=== PATIENT | female | born 1970 | race Native Hawaiian/Other Pacific Islander ===

== ENCOUNTER 2018-03-16 17:57 | Emergency (ER) | payer SELFPAY ==
--- NOTE | 2018-03-16 19:17 | ED PDOC ---
Arrival/HPI <BarneyMichael - Last Filed: 03/16/18 23:18> - General Historian: Patient - History of Present Illness Narrative History of Present Illness (Text): 03/16/18 19:14 48yo female with pmhx of hypertension who present with complaint of LUQ pain. States pain started on her epigastric area 2weeks ago with associated nausea and vomiting. She saw her PMD twice and was given Protonix. states the pain resolved and started again yesterday, but on her LUQ this time. States pain is intermittent and radiates to her left pelvic area. Notes that pain is usually worse when laying down. she denies nausea, vomiting, diarrhea, constipation, fever, chills, urinary symptoms, sick contact, hematuria, any other complaint. <Kam Irene A - Last Filed: 03/17/18 01:03> - General Time Seen by Provider: 03/16/18 19:13 Past Medical History - Provider Review Nursing Documentation Reviewed: Yes - Cardiac Hx Hypertension: Yes - Musculoskeletal/Rheumatological Hx Musculoskeletal Disorders: Yes (Left shoulder pain for many years) - Psychiatric Hx Substance Use: No - Suicidal Assessment Feels Threatened In Home Enviroment: No <Kam Irene A - Last Filed: 03/17/18 01:03> Family/Social History - Physician Review Nursing Documentation Reviewed: Yes Family/Social History: Unknown Family HX Smoking Status: Never Smoked Hx Alcohol Use: No Hx Substance Use: No Hx Substance Use Treatment: No <aKm Irene A - Last Filed: 03/17/18 01:03> Allergies/Home Meds <Michael Corley - Last Filed: 03/16/18 23:18> <Kam Irene A - Last Filed: 03/17/18 01:03> Allergies/Adverse Reactions: Allergies No Known Allergies Allergy (Verified 04/21/12 18:48) Home Medications: Home Meds Medication Instructions Recorded Confirmed Hydrochlorothiazide/Losartan 1 tab PO DAILY 04/22/12 03/16/18 [Losartan Potassium-Hydrochlorothiazide 12.5 M] Pantoprazole Sodium [Protonix] 40 mg PO DAILY 03/16/18 03/16/18 Review of Systems - Physician Review All systems were reviewed & negative as marked: Yes - Review of Systems Constitutional: Normal Eyes: Normal ENT: Normal Respiratory: Normal Cardiovascular: Normal Gastrointestinal: Abdominal Pain. absent: Constipation, Diarrhea, Nausea, Vomiting, Hematochezia, Hematemesis Genitourinary Female: Normal Musculoskeletal: Normal Skin: Normal Neurological: Normal Endocrine: Normal Hemo/Lymphatic: Normal Psychiatric: Normal <Kam Irene A - Last Filed: 03/17/18 01:03> Physical Exam Vital Signs Temp Pulse Resp BP Pulse Ox 03/16/18 22:54 97.9 F 78 20 134/78 98 03/16/18 17:58 98.9 F 75 18 148/85 99 <BarneyMichael - Last Filed: 03/16/18 23:18> Vital Signs Reviewed: Yes Temperature: Afebrile Blood Pressure: Normal Pulse: Regular Respiratory Rate: Normal Appearance: Positive for: Well-Appearing, Non-Toxic, Comfortable Pain Distress: None Mental Status: Positive for: Alert and Oriented X 3 - Systems Exam Head: Present: Atraumatic, Normocephalic Pupils: Present: PERRL Extroacular Muscles: Present: EOMI Conjunctiva: Present: Normal Mouth: Present: Moist Mucous Membranes Neck: Present: Normal Range of Motion Respiratory/Chest: Present: Clear to Auscultation, Good Air Exchange. No: Respiratory Distress, Accessory Muscle Use Cardiovascular: Present: Regular Rate and Rhythm, Normal S1, S2. No: Murmurs Abdomen: Present: Tenderness (Mild tenderness on deep palpation of LUQ), Other (Soft). No: Distention, Peritoneal Signs, Rebound, Guarding, McBurney's Point Tender, Rovsing's Sign Present Back: Present: Normal Inspection Upper Extremity: Present: Normal Inspection. No: Cyanosis, Edema Lower Extremity: Present: Normal Inspection. No: Edema Neurological: Present: GCS=15, CN II-XII Intact, Speech Normal Skin: Present: Warm, Dry, Normal Color. No: Rashes Psychiatric: Present: Alert, Oriented x 3, Normal Insight, Normal Concentration <Maria VictoriaKam A - Last Filed: 03/17/18 01:03> Medical Decision Making - Lab Interpretations Lab Results: 03/16/18 20:05 03/16/18 20:05 Lab Results 03/16/18 20:05: Sodium 138, Chloride 100, Potassium 3.1 L, Carbon Dioxide 28, Anion Gap 13, BUN 14, Creatinine 0.9, Est GFR ( Amer) > 60, Est GFR (Non- Af Amer) > 60, Random Glucose 96, Calcium 9.7, Magnesium 1.9, Total Bilirubin 0.6, AST 39 H, ALT 27, Alkaline Phosphatase 69, Total Protein 7.6, Albumin 4.3, Globulin 3.2, Albumin/Globulin Ratio 1.3, Lipase 74 03/16/18 20:05: pO2 31, VBG pH 7.37, VBG pCO2 53.0, VBG HCO3 30.6 H, VBG Total CO2 32.2 H, VBG O2 Sat (Calc) 65.5 H, VBG Base Excess 4.0 H, VBG Potassium 3.3 L , Sodium 138.0, Chloride 102.0, Glucose 90, Lactate 1.4, FiO2 21.0, Venous Blood Potassium 3.3 L 03/16/18 20:05: Urine Color Light yellow, Urine Appearance Clear, Urine pH 7.0, Ur Specific [place] <= 1.005, Urine Protein Negative, Urine Glucose (UA) Negative, Urine Ketones 15 H, Urine Blood Negative, Urine Nitrate Negative, Urine Bilirubin Negative, Urine Urobilinogen 0.2, Ur Leukocyte Esterase Trace H, Urine RBC 0 - 2, Urine WBC 2 - 5, Ur Epithelial Cells 3 - 4, Urine Bacteria Few 03/16/18 20:05: PT 12.1, INR 1.06, APTT 30.5 03/16/18 20:05: WBC 6.0, RBC 4.42, Hgb 13.6, Hct 39.1, MCV 88.5, MCH 30.8, MCHC 34.8, RDW 13.1, Plt Count 210, MPV 12.0 H, Gran % 60.7, Lymph % (Auto) 32.1, [place] % (Auto) 5.2, Eos % (Auto) 1.7, Baso % (Auto) 0.3, Gran # 3.65, Lymph # (Auto) 1.9, [place] # (Auto) 0.3, Eos # (Auto) 0.1, Baso # (Auto) 0.02 - RAD Interpretation Radiology Orders: 03/16/18 19:18 ABD & PELVIS W/O PO OR IV CONT [CT] Stat - Medication Orders Current Medication Orders: Discontinued Medications Famotidine (Pepcid) 20 mg IVP STAT STA Stop: 03/16/18 19:19 Last Admin: 03/16/18 20:22 Dose: 20 mg IVP Administration Document 03/16/18 20:22 [facility] (Rec: 03/16/18 20:22 [id number] Charges for Administration # of IVP Administrations 1 Sodium Chloride (Sodium Chloride 0.9%) 1,000 mls @ 1,000 mls/hr IV .Q1H STA Stop: 03/16/18 20:17 Last Admin: 03/16/18 20:22 Dose: 1,000 mls/hr eMAR Start Stop Document 03/16/18 20:22 [facility] (Rec: 03/16/18 20:22 [id number] Intravenous Solution Start Date 03/16/18 Start Time 20:22 Potassium Chloride (K-Dur 20 Meq Er Tab) 40 meq PO STAT STA Stop: 03/16/18 21:39 Last Admin: 03/16/18 23:04 Dose: 40 meq <Michael Corley - Last Filed: 03/16/18 23:18> ED Course and Treatment: 03/16/18 23:23 Impression: 1. Mild constipation. No obstructive or inflammatory bowel changes.2. No evidence of hydronephrosis or nephrolithiasis. 3. The gallbladder appears grossly unremarkable. 4. Simple cyst in the right lobe of the liver. 03/17/18 00:49 PT presented for stated history. Lab was unremarkable with exception of hypokalemia tjhat was repleted Abdominal/ Pelvic CT as noted above. Pt's pain likley gastristis. Result was DW the pt. She was referred to her PMD/GI <Kam Irene - Last Filed: 03/17/18 01:03> - PA / SALES SUPERINTENDENT / Resident Statement /DO has reviewed & agrees with the documentation as recorded. <Michael Corley - Last Filed: 03/16/18 23:18> Disposition/Present on Arrival <Michael Corley - Last Filed: 03/16/18 23:18> - Present on Arrival Any Indicators Present on Arrival: No History of DVT/PE: No History of Uncontrolled Diabetes: No Urinary Catheter: No History Surgical Site Infection Following: None - Disposition Have Diagnosis and Disposition been Completed?: Yes Disposition Time: 23:25 Patient Plan: Discharge <Kam Irene - Last Filed: 03/17/18 01:03> - Disposition Diagnosis: Abdominal pain Disposition: HOME/ ROUTINE Condition: STABLE Discharge Instructions (ExitCare): Acute Abdomen (Belly Pain), Adult (DC) Additional Instructions: Follow up with your Doctor Return to ED for any new or worsening symptoms Referrals: Charly MCCARTY,Gustabo Dunlap MD [Family Provider] - Follow up with primary Forms: [employer] (Faroese)
[2018-03-16] MEDS ORDERED: Sodium Chloride 0.9% 1,000 ML IV STA (19:18)
[2018-03-16 19:19] VITALS: BMI 26.6
[2018-03-16 20:37] LABS: BASO # 0.02 K/mm3 (0.0-2.0); BASO % 0.3 % (0.0-3.0); EOS # 0.1 (0.0-0.7); EOS % 1.7 % (1.5-5.0); GRAN # 3.65 (1.4-6.5); GRAN % 60.7 % (50.0-68.0); HEMOGLOBIN 13.6 g/dL (12.0-16.0); LYMPH # 1.9 (1.2-3.4); LYMPH % 32.1 % (22.0-35.0); MEAN CELL VOLUME 88.5 fl (80.0-105.0); MEAN CORPUSCULAR HEMOGLOBIN 30.8 pg (25.0-35.0); MEAN CORPUSCULAR HGB CONC 34.8 g/dl (31.0-37.0); MONO # 0.3 (0.1-0.6); MONO % 5.2 % (1.0-6.0); RBC 4.42 10^6/uL (3.5-6.1); RED CELL DISTRIBUTION WIDTH 13.1 % (11.5-14.5); URINE BILIRUBIN NEGATIVE (NEGATIVE); URINE BLOOD NEGATIVE (NEGATIVE); URINE GLUCOSE (UA) NEGATIVE (NEGATIVE); URINE LEUKOCYTE ESTERASE TRACE Leu/uL (NEGATIVE); URINE PROTEIN NEGATIVE mg/dL (<30 mg/dL); URINE UROBILINOGEN 0.2 E.U./dL (<1 E.U./dL)
[2018-03-16 20:38] LABS: URINE APPEARANCE CLEAR (CLEAR)
[2018-03-16 20:39] LABS: URINE COLOR LIGHT YELLOW (YELLOW)
[2018-03-16 20:41] LABS: INR 1.06; PARTIAL THROMBOPLASTIN TIME 30.5 Seconds (25.1-36.5); PROTHROMBIN TIME 12.1 SECONDS (9.4-12.5)
[2018-03-16 20:43] LABS: URINE BACTERIA FEW (NEG); URINE RBC 0 - 2 /hpf (0-2)
[2018-03-16 21:02] LABS: VENOUS BLOOD GAS PO2 31 mm/Hg (30-55); VENOUS BLOOD PH 7.37 (7.32-7.43)
[2018-03-16 21:20] LABS: BLOOD UREA NITROGEN 14 mg/dL (7-21); GFR NON-AFRICAN AMERICAN > 60
[2018-03-16 21:21] LABS: ALB/GLOB RATIO 1.3 (1.1-1.8); ALBUMIN 4.3 g/dL (3.0-4.8); ALT/SGPT 27 U/L (7-56); AST/SGOT 39 U/L (14-36); CALCIUM 9.7 mg/dL (8.4-10.5)
[2018-03-16 21:22] LABS: LIPASE 74 U/L (23-300)
[2018-03-16] MEDS ORDERED: Potassium Chloride 20 mEq ER Tab PO STA (21:38)
[2018-03-16 22:55] VITALS: PULSE 78; O2SAT 98
[2018-03-17 00:19] VITALS: BP 120/77; RESP 18; TEMP 98
--- NOTE | 2018-03-17 15:22 | CT ---
Date of service: 03/16/2018 PROCEDURE: CT Abdomen and Pelvis without intravenous contrast HISTORY: LUQ pain COMPARISON: None. TECHNIQUE: Without contrast.. Contrast dose: Radiation dose: Total exam DLP = 948 mGy-cm. This CT exam was performed using one or more of the following dose reduction techniques: Automated exposure control, adjustment of the mA and/or kV according to patient size, and/or use of iterative reconstruction technique. FINDINGS: LOWER THORAX: Unremarkable. LIVER: Unremarkable. No gross lesion or ductal dilatation. GALLBLADDER AND BILE DUCTS: Unremarkable. PANCREAS: Unremarkable. No gross lesion or ductal dilatation. SPLEEN: Unremarkable. ADRENALS: Unremarkable. No mass. KIDNEYS AND URETERS: Unremarkable. No hydronephrosis. No solid mass. VASCULATURE: Unremarkable. No aortic aneurysm. BOWEL: Unremarkable. No obstruction. No gross mural thickening. Mild constipation APPENDIX: Unremarkable. Normal appendix. PERITONEUM: Unremarkable. No free fluid. No free air. LYMPH NODES: Unremarkable. No enlarged lymph nodes. BLADDER: Unremarkable. REPRODUCTIVE: Unremarkable. BONES: No acute fracture. OTHER FINDINGS: The report concurs with the preliminary [facility] report IMPRESSION: No acute intra-abdominal findings.
== END 2018-03-17 00:17 | disposition home or self-care (01) ==
LOC: ED 17:57
DX: R10.12 Left upper quadrant pain (principal); I10 Essential (primary) hypertension
CPT/HCPCS: 74176; 80053; 81001; 82803; 83690; 83735; 85025; 85610; 85730; 87086; 96374; 99284; J7030